=== PATIENT | female | born 1955 | race Caucasian/White ===

== ENCOUNTER 2019-05-17 14:08 | Emergency (ER) | payer MEDICARE ==
--- NOTE | 2019-05-17 15:03 | ER Document Report ---
ED Medical Screen (RME) - General Chief Complaint: Breathing Difficulty Stated Complaint: DIFFICULTY BREATHING/ABDOMINAL PAIN Time Seen by Provider: 05/17/19 14:53 - HPI Notes: 05/17/19 15:00 Patient is a 63-year-old female who presents complaining of dyspnea on exertion that is been ongoing for 2 weeks, swelling in her lower extremities, some left lower chest pains, nausea and some vomiting over the past couple days as well. She is urinating normally and having normal bowel movements otherwise. Patient states that she had a history of hepatitis C, but took the curative medication last year for. No history of CHF, PA, CAD, PE, DVT. I have treated and performed a rapid initial assessment of this patient. A comprehensive ED assessment and evaluation of the patient, analysis of test results and completion of medical decision making process will be conducted by additional ED providers. PHYSICAL EXAMINATION: GENERAL: Well-appearing, well-nourished and in no acute distress. A&Ox4. Answers questions appropriately. Lungs: Grossly CTAB, some diminishment at the base bilaterally. Heart: RRR Extremities: 1+ pitting edema bilateral lower extremities. Past Medical History - Social History Frequency of alcohol use: None Drug Abuse: None Physical Exam - Vital signs Vitals: Temp Pulse Resp BP Pulse Ox 98.3 F 117 H 36 H 135/65 H 100 05/17/19 14:51 05/17/19 14:51 05/17/19 14:51 05/17/19 14:51 05/17/19 14:51 Course - Vital Signs Vital signs: Temp Pulse Resp BP Pulse Ox 98.3 F 117 H 36 H 135/65 H 100 05/17/19 14:51 05/17/19 14:51 05/17/19 14:51 05/17/19 14:51 05/17/19 14:51
--- NOTE | 2019-05-17 15:49 | RADIOLOGY REPORT (SQ) ---
EXAM DESCRIPTION: CHEST 2 VIEWS COMPLETED DATE/TIME: 05/17/2019 3:35 pm REASON FOR STUDY: VINCENT COMPARISON: None. EXAM PARAMETERS: NUMBER OF VIEWS: two views TECHNIQUE: PA and lateral views of the chest were obtained. RADIATION DOSE: NA LIMITATIONS: none FINDINGS: LUNGS AND PLEURA: No consolidation, pleural effusion or pneumothorax. MEDIASTINUM AND HILAR STRUCTURES: No mediastinal or hilar contour abnormality. HEART AND VASCULAR STRUCTURES: The cardiac silhouette and pulmonary vasculature are within normal [place] its. BONES: No acute findings. HARDWARE: None in the chest. OTHER: No other finding. IMPRESSION: No acute cardiopulmonary process. TECHNICAL DOCUMENTATION: JOB ID: [id number] [employer]- All Rights Reserved Reading location - IP/workstation name: [email or web address]
[2019-05-17 16:24] LABS: ABSOLUTE BASOPHILS # (AUTO) 0.1 10^3/uL (0.0-0.2); ABSOLUTE EOSINOPHILS # (AUTO) 0.1 10^3/uL (0.0-0.6); ABSOLUTE MONOCYTES (AUTO) 0.7 10^3/uL (0.1-1.4); ABSOLUTE NEUT (AUTO) 6.6 10^3/uL (1.7-8.2); BASOPHILS % (AUTO) 0.5 % (0-2); HEMATOCRIT 20.4 % (36.0-47.0); LYMPHOCYTES % (AUTO) 20.8 % (13-45); MEAN CORPUSCULAR HEMOGLOBIN 22.8 pg (27.0-33.4); MEAN CORPUSCULAR HGB CONC 30.7 g/dL (32.0-36.0); MEAN CORPUSCULAR VOLUME 74 fl (80-97); MONOCYTES % (AUTO) 7.3 % (3-13); PLATELET COUNT 106 10^3/uL (150-450); RED BLOOD COUNT 2.74 10^6/uL (3.72-5.28); RED CELL DISTRIBUTION WIDTH 18.5 % (11.5-14.0); SEGMENTED NEUTROPHILS % (AUTO) 70.4 % (42-78); TOTAL CELLS COUNTED % (AUTO) 100 %; WHITE BLOOD COUNT 9.4 10^3/uL (4.0-10.5)
[2019-05-17 16:28] LABS: HEMOGLOBIN 6.3 g/dL (12.0-15.5)
[2019-05-17 16:38] LABS: ALBUMIN 3.3 g/dL (3.5-5.0); ALKALINE PHOSPHATASE 108 U/L (38-126); ANION GAP 9 (5-19); ASPARTATE AMINO TRANSFERASE 29 U/L (14-36); BILIRUBIN,DIRECT 1.4 mg/dL (0.0-0.4); BLOOD UREA NITROGEN 15 mg/dL (7-20); CARBON DIOXIDE 28 mmol/L (22-30); CHLORIDE 100 mmol/L (98-107); GLUCOSE 95 mg/dL (75-110); POTASSIUM 4.1 mmol/L (3.6-5.0); TOTAL PROTEIN 6.7 g/dL (6.3-8.2)
[2019-05-17 16:43] LABS: APPEARANCE,URINE CLEAR; BILIRUBIN,URINE NEGATIVE (NEGATIVE); COLOR,URINE YELLOW; GLUCOSE, URINE NEGATIVE (NEGATIVE); KETONES,URINE NEGATIVE (NEGATIVE); PROTEIN,URINE NEGATIVE (NEGATIVE); URINE SPECIFIC GRAVITY 1.014
[2019-05-17] MEDS ORDERED: NORMAL SALINE 500 ML IV ONE (16:48)
[2019-05-17 16:50] LABS: NT PRO BNP 191 pg/mL (<125)
--- NOTE | 2019-05-17 16:53 | ER Document Report ---
ED General - General Chief Complaint: Shortness Of Breath Stated Complaint: DIFFICULTY BREATHING/ABDOMINAL PAIN Time Seen by Provider: 05/17/19 14:53 - HPI Patient complains to provider of: 63 y/o presenting to ED for evaluation of abdominal distention Notes: 63 y/o presenting to ED for evaluation of abdominal distention, SOB, and exertional dyspnea no known blood loss or h/o anemia per her report she has a h/o hep c s/p harvoni treatment that she states was successful although also tells me she has cirrhosis no fever, chills no chest pain she has lower extremity edema, nausea w/o vomiting, abdominal distention, and exertional intolerance. - Related Data Allergies/Adverse Reactions: No Known Allergies Allergy (Unverified 05/17/19 16:52) Past Medical History - Social History Smoking Status: Unknown if Ever Smoked Frequency of alcohol use: None Drug Abuse: None Family History: Other - cirrhosis, hep c Patient has suicidal ideation: No Patient has homicidal ideation: No Review of Systems - Review of Systems Constitutional: No symptoms reported EENT: No symptoms reported Cardiovascular: Edema Respiratory: Short of breath Gastrointestinal: Abdomen distended, Abdominal pain, Nausea. denies: Vomiting Genitourinary: No symptoms reported Female Genitourinary: No symptoms reported Musculoskeletal: No symptoms reported Skin: No symptoms reported Hematologic/Lymphatic: No symptoms reported Neurological/Psychological: No symptoms reported Physical Exam - Vital signs Vitals: Pulse Pulse Ox 119 H 100 05/17/19 14:49 05/17/19 14:49 Interpretation: Normal - General General appearance: Appears well, Alert - HEENT Head: Normocephalic, Atraumatic Eyes: Normal Pupils: PERRL - Respiratory Respiratory status: No respiratory distress Chest status: Nontender Breath sounds: Normal Chest palpation: Normal - Cardiovascular Rhythm: Tachycardia Heart sounds: Normal auscultation Murmur: No Notes: lower extremity pitting edema - Abdominal Inspection: Normal Distension: Distended. No: Tympanitic Bowel sounds: Normal Tenderness: Tender - generally tender and tympanic Organomegaly: No organomegaly - Back Back: Normal, Nontender - Extremities General upper extremity: Normal inspection, Nontender, Normal color, Normal ROM, Normal temperature General lower extremity: Normal inspection, Nontender, Normal color, Normal ROM, Normal temperature, Normal weight bearing. No: Felicitas's sign - Neurological Neuro grossly intact: Yes Cognition: Normal Orientation: AAOx4 Cindy Coma Scale Eye Opening: Spontaneous [place] Coma Scale Verbal: Oriented [place] Coma Scale Motor: Obeys Commands [place] Coma Scale Total: 15 Speech: Normal Motor strength normal: LUE, RUE, LLE, RLE Sensory: Normal - Psychological Associated symptoms: Normal affect, Normal mood - Skin Skin Temperature: Warm Skin Moisture: Dry Skin Color: Normal Course - Re-evaluation Re-evalutation: 05/17/19 17:14 type and cross for blood given hgb <7 and SOB w/ exertion EKG NSR w/o ST segment changes and mild tachycardia CXR is clearn will obtain CT abd/pelvis to delineate cause of distention 05/17/19 21:34 transfused 1 unit and then patient signed out AMA stating she wanted to return to [place] for further treatment she understands risk of from undiagnosed bleeding source and has elected to leave the hospital AMA rather than be admitted here or transferred to a tertiary center for GI evaluation - Vital Signs Vital signs: Temp Pulse Resp BP Pulse Ox 97.1 F 108 H 19 148/70 H 94 05/17/19 20:50 05/17/19 19:32 05/17/19 19:45 05/17/19 19:45 05/17/19 19:45 - Laboratory Result Diagrams: 05/17/19 16:00 05/17/19 16:00 Laboratory results interpreted by me: 05/17/19 05/17/19 05/17/19 16:00 16:00 16:00 RBC 2.74 L Hgb 6.3 L Hct 20.4 L MCV 74 L MCH 22.8 L MCHC 30.7 L RDW 18.5 H Plt Count 106 L Sodium 136.9 L Total Bilirubin 2.0 H Direct Bilirubin 1.4 H NT-Pro-B Natriuret Pep 191 H Albumin 3.3 L Urine Urobilinogen Crossmatch 05/17/19 05/17/19 16:00 16:45 RBC Hgb Hct MCV MCH MCHC RDW Plt Count Sodium Total Bilirubin Direct Bilirubin NT-Pro-B Natriuret Pep Albumin Urine Urobilinogen 4.0 H Crossmatch See Detail - Diagnostic Test Radiology reviewed: Image reviewed, Reports reviewed Discharge - Discharge Clinical Impression: Thrombocytopenia Cirrhosis Qualifiers: Hepatic cirrhosis type: unspecified hepatic cirrhosis Ascites presence: with ascites Qualified Code(s): K74.60 - Unspecified cirrhosis of liver; R18.8 - Other ascites Anemia Qualifiers: Anemia type: unspecified type Qualified Code(s): D64.9 - Anemia, unspecified Condition: Stable Disposition: AGAINST MEDICAL ADVICE Instructions: Anemia ([facility]) Additional Instructions: your hemoglobin is 6.3 here today prior to transfusion it was recommended that you be admitted or transferred to a tertiary center but you decided to return to [place] for further treatment Return to the ED should you change your mind regarding treatment plan
[2019-05-17 16:56] LABS: TROPONIN I < 0.012 ng/mL
[2019-05-17] MEDS ORDERED: ACETAMINOPHEN 325 MG TABLET PO PRN (17:05)
[2019-05-17] MEDS ORDERED: NORMAL SALINE 250 ML IV PRN ×2 (17:05)
[2019-05-17 17:12] LABS: INTERNATIONAL RATION (INR) 1.19; PROTHROMBIN TIME 15.2 SEC (11.4-15.4)
[2019-05-17 17:13] LABS: PARTIAL THROMBOPLASTIN TIME 32.7 SEC (23.5-35.8)
[2019-05-17] MEDS ORDERED: ONDANSETRON HCL INJ/PF 4 MG/2 ML SDV IV ONE (17:36)
--- NOTE | 2019-05-17 19:28 | EKG REPORT ---
SEVERITY:- OTHERWISE NORMAL ECG - SINUS TACHYCARDIA : Confirmed by: Shital Souza MD 17-May-2019 19:27:57
--- NOTE | 2019-05-17 20:52 | RADIOLOGY REPORT (SQ) ---
EXAM DESCRIPTION: CT ABDOMEN PELVIS WITH IV CONTRAST COMPLETED DATE/TME: 05/17/2019 00:00 CLINICAL HISTORY: 63 years Female abdominal pain COMPARISON: None. TECHNIQUE: Contiguous axial images obtained through the abdomen and pelvis following IV contrast. Reformatted images obtained. This exam was performed according to our department optimization program which includes automated exposure control, adjustment of the mA and/or kv according to patient size and/or use of iterative reconstruction technique. FINDINGS: Nodular appearance of the liver suggesting cirrhosis. The spleen is mildly enlarged measuring 15.2 cm. Pancreas is unremarkable. There is an adrenal nodule on the left measuring 2.4 cm with Hounsfield units of 56. Recommend three-phase CT or MRI with chemical shift imaging. The kidneys appear unremarkable. No hydronephrosis. The gallbladder is distended. There is wall thickening and adjacent inflammatory changes may be as a result of hepatic dysfunction. Cholecystitis is not excluded. There also appears to be wall thickening and inflammation in the duodenum with some adjacent stranding suggesting duodenitis or ulcer disease. The adjacent pancreas appears normal in size without obvious peripancreatic edema. Mildly prominent density in the retrocrural space may represent varix as it appears elongated. Ascites. Mild wall thickening along a segment of the cecum and ascending colon which may BE infectious or inflammatory. Recommend follow-up to exclude the possibility of early annular mass. Subcutaneous edema and stranding throughout the abdomen and pelvis and proximal thighs. No aneurysmal dilatation of the aorta. No bowel obstruction. The appendix is not seen. IMPRESSION: Findings suggesting cirrhosis and portal venous hypertension with ascites and splenic enlargement Wall thickening and inflammation in the second and third portions of the duodenum which may reflect duodenitis or ulcer disease. No evidence to suggest pancreatitis Wall thickening and inflammation around the gallbladder which may be due to hepatic dysfunction, adjacent inflammation of the duodenum or cholecystitis Diffuse subcutaneous edema which is nonspecific Focal area of thickening in the cecum/ascending colon. Question infectious or inflammatory process. The possibility of a developing annular mass should be considered. Recommend further evaluation with barium study or endoscopy Additional changes as above
[2019-05-17 21:56] VITALS: BP 143/58
== END 2019-05-17 21:59 | disposition left against medical advice (07) ==
LOC: EDSEX 14:08 → ER 14:08
DX: D64.9 Anemia, unspecified (principal); K74.60 Unspecified cirrhosis of liver; R18.8 Other ascites; D69.6 Thrombocytopenia, unspecified; R06.02 Shortness of breath; R11.0 Nausea; R10.9 Unspecified abdominal pain; R10.817 Generalized abdominal tenderness; R00.0 Tachycardia, unspecified; Z53.29 Procedure and treatment not carried out because of patient's decision for other reasons
CPT/HCPCS: 93005; 99285; 96374; 86900; 86901; 36415; 36430; 86850; 83690; 85025; 85610; 85730; 80053; 81001; 84484; 86920; 83880; 71046; 74177; 93010; P9016; J2405